=== PATIENT | female | born 1950 | race Caucasian/White ===

== ENCOUNTER 2016-04-14 13:39 | Observation (INO) | payer MEDICARE, MEDICAID ==
--- NOTE | 2016-04-14 13:49 | ER Document Report ---
ED Medical Screen (RME) - General Stated Complaint: CHEST DISCOMFORT Notes: 66-year-old female presents to ED via EMS for chest pain while eating lunch [employer]. She states she been having chest discomfort for about 45 minutes and states she would not aborted up with someone saw her to told the staff who called EMS. States she's been here multiple times for chest pain and they never figure it with round. They contacted Dr. Boyer and he sent her to the emergency room. I have greeted and performed a rapid initial assessment of this patient. A comprehensive ED assessment and evaluation of the patient, analysis of test results and completion of medical decision making process will be conducted by an additional ED providers. TRAVEL OUTSIDE OF THE [place] IN LAST 30 DAYS: No - Related Data Allergies/Adverse Reactions: Sulfa (Sulfonamide Antibiotics) Allergy (Verified 04/21/14 16:01) red food dye Allergy (Uncoded 04/21/14 16:01) Past Medical History - Past Medical History Cardiac Medical History: Reports: Hx Congestive Heart Failure, Hx Hypercholesterolemia, Hx Hypertension Pulmonary Medical History: Reports: Hx Pneumonia Neurological Medical History: Reports: Hx Seizures - NO SEIZURE IN OVER 20 YEARS Renal/ Medical History: Reports: Hx End Stage Renal Disease - kidney disease- stage 3, Hx Renal Insufficiency Malignancy Medical History: Reports: Hx Colorectal Cancer, Hx Lymphoma - Non- Hodgkin's lymphoma. GI Medical History: Reports: Hx Gastroesophageal Reflux Disease Musculoskeltal Medical History: Reports Hx Arthritis Psychiatric Medical History: Reports: Hx Bipolar Disorder, Hx Dementia, Hx Depression, Hx Schizophrenia - Paranoid schizophrenia Past Surgical History: Reports: Hx Abdominal Surgery - hernia repair, Hx Appendectomy, Hx Herniorrhaphy, Hx Hysterectomy, Hx Tonsillectomy - Immunizations Hx Diphtheria, Pertussis, Tetanus Vaccination: Yes
[2016-04-14] MEDS ORDERED: ASPIRIN 81 MG TABLET, CHEWABLE PO ONE (13:50)
[2016-04-14 14:30] LABS: ABSOLUTE EOSINOPHILS # (AUTO) 0.2 10^3/uL (0.0-0.6); ABSOLUTE LYMPHOCYTES (AUTO) 1.7 10^3/uL (0.5-4.7); ABSOLUTE MONOCYTES (AUTO) 0.5 10^3/uL (0.1-1.4); ABSOLUTE NEUT (AUTO) 3.8 10^3/uL (1.7-8.2); BASOPHILS % (AUTO) 0.5 % (0-2); EOSINOPHILS % (AUTO) 2.7 % (0-6); HEMOGLOBIN 12.1 g/dL (12.0-15.5); HGB HCT DIFFERENCE -2.7; LYMPHOCYTES % (AUTO) 27.6 % (13-45); MEAN CORPUSCULAR HEMOGLOBIN 25.4 pg (27.0-33.4); MEAN CORPUSCULAR VOLUME 82 fl (80-97); MONOCYTES % (AUTO) 7.9 % (3-13); RED BLOOD COUNT 4.76 10^6/uL (3.72-5.28); RED CELL DISTRIBUTION WIDTH 18.2 % (11.5-14.0); SEGMENTED NEUTROPHILS % (AUTO) 61.3 % (42-78); WHITE BLOOD COUNT 6.2 10^3/uL (4.0-10.5)
[2016-04-14 14:50] LABS: ALANINE AMINOTRANSFERASE 32 U/L (9-52); ALBUMIN 3.8 g/dL (3.5-5.0); ALKALINE PHOSPHATASE 131 U/L (38-126); ANION GAP 11 (5-19); ASPARTATE AMINO TRANSFERASE 19 U/L (14-36); BILIRUBIN,TOTAL 0.4 mg/dL (0.2-1.3); BLOOD UREA NITROGEN 31 mg/dL (7-20); CALCIUM 9.1 mg/dL (8.4-10.2); CARBON DIOXIDE 33 mmol/L (22-30); CHLORIDE 100 mmol/L (98-107); CREATINE KINASE 56 U/L (30-135); CREATININE RESULT 1.12 mg/dL (0.52-1.25); GLUCOSE 103 mg/dL (75-110); LIPASE 87.7 U/L (23-300); POTASSIUM 4.2 mmol/L (3.6-5.0); SODIUM 143.8 mmol/L (137-145); TOTAL PROTEIN 5.9 g/dL (6.3-8.2)
--- NOTE | 2016-04-14 17:00 | ER Document Report ---
ED Cardiac - General Chief Complaint: Chest Pain Stated Complaint: CHEST DISCOMFORT Mode of Arrival: Medic Information source: Patient TRAVEL OUTSIDE OF THE [place] IN LAST 30 DAYS: No - HPI Patient complains to provider of: Chest pain Use of: denies: Alcohol, Amphetamines, Bath salts, Caffeine, Cocaine, Decongestants Was the onset of pain: Sudden When did pain begin: 1245 Is the pain a: New problem Chest pain location: Substernal Quality of pain: Sharp - AT BEGINNING, Tightness - AND "CRAMPY" LATER Chest pain radiation location: None Severity now: None Severity at worst: Moderate Chest pain precipitating factors: Eating - LO MEIN FOR LUNCH Cardiac risk factors: Hypertension, Dyslipidemia Associated symptoms: Diaphoresis, Nausea/vomiting, Shortness of breath Exacerbated by: Denies Relieved by: Other - ASA Similar symptoms previously: Yes Recently seen / treated by doctor: No - Related Data Allergies/Adverse Reactions: Sulfa (Sulfonamide Antibiotics) Allergy (Verified 04/14/16 13:56) red food dye Allergy (Uncoded 04/14/16 13:56) Past Medical History - General Information source: Patient, Outside Facility Records - Social History Smoking Status: Unknown if Ever Smoked Chew tobacco use (# tins/day): No Frequency of alcohol use: None Drug Abuse: None Lives with: Care Home Family History: Reviewed & Not Pertinent Patient has suicidal ideation: No Patient has homicidal ideation: No - Past Medical History Cardiac Medical History: Reports: Hx Congestive Heart Failure, Hx Hypercholesterolemia, Hx Hypertension Pulmonary Medical History: Reports: Hx Pneumonia Neurological Medical History: Reports: Hx Seizures - NO SEIZURE IN OVER 20 YEARS Renal/ Medical History: Reports: Hx End Stage Renal Disease - kidney disease- stage 3, Hx Renal Insufficiency. Denies: Hx Peritoneal Dialysis Malignancy Medical History: Reports: Hx Colorectal Cancer, Hx Lymphoma - Non- Hodgkin's lymphoma. GI Medical History: Reports: Hx Gastroesophageal Reflux Disease Musculoskeltal Medical History: Reports Hx Arthritis Psychiatric Medical History: Reports: Hx Bipolar Disorder, Hx Dementia, Hx Depression, Hx Schizophrenia - Paranoid schizophrenia Past Surgical History: Reports: Hx Abdominal Surgery - hernia repair, Hx Appendectomy, Hx Herniorrhaphy, Hx Hysterectomy, Hx Tonsillectomy - Immunizations Hx Diphtheria, Pertussis, Tetanus Vaccination: Yes Hx Pneumococcal Vaccination: 12/17/13 Review of Systems - Review of Systems Constitutional: See HPI EENT: No symptoms reported Cardiovascular: See HPI Respiratory: See HPI Gastrointestinal: See HPI Genitourinary: No symptoms reported Female Genitourinary: Post menopausal Musculoskeletal: No symptoms reported Skin: No symptoms reported Neurological/Psychological: No symptoms reported Physical Exam - Vital signs Vitals: Temp Pulse Resp BP Pulse Ox 97.3 F 57 L 16 119/57 L 97 04/14/16 13:58 04/14/16 13:58 04/14/16 13:58 04/14/16 13:58 04/14/16 13:58 Interpretation: Bradycardic - General General appearance: Appears well, Alert In distress: None - HEENT Head: Normocephalic Eyes: Normal Conjunctiva: Normal Ears: Normal Nasal: Normal Mouth/Lips: Normal Mucous membranes: Normal Pharynx: Normal Neck: Normal - Respiratory Respiratory status: No respiratory distress Breath sounds: Normal - Cardiovascular Rhythm: Regular Heart sounds: Normal auscultation Murmur: No - Abdominal Inspection: Obese Bowel sounds: Normal - Extremities General upper extremity: Normal inspection General lower extremity: Edema - 2+, BILAT. (PATIENT SAYS THEY LOOK GOOD TODAY) . No: Normal inspection Foot: Edema - 1+, BILAT. - Neurological Neuro grossly intact: Yes Cognition: Normal Orientation: AAOx4 - Psychological Associated symptoms: Normal affect, Normal mood - Skin Skin Temperature: Warm Skin Moisture: Dry Skin Color: Normal Skin Turgor: Elastic Skin irregularity: Erythema Location of irregularity: Other - LEGS & FEET Course - Vital Signs Vital signs: Temp Pulse Resp BP Pulse Ox 97.3 F 57 L 16 119/57 L 97 04/14/16 13:58 04/14/16 13:58 04/14/16 13:58 04/14/16 13:58 04/14/16 13:58 - Laboratory Result Diagrams: 04/14/16 14:10 04/14/16 14:10 Laboratory results interpreted by me: 04/14/16 04/14/16 14:10 14:10 MCH 25.4 L MCHC 31.0 L RDW 18.2 H Carbon Dioxide 33 H BUN 31 H Est GFR ( Amer) 59 L Est GFR (Non-Af Amer) 48 L Alkaline Phosphatase 131 H Total Protein 5.9 L - EKG Interpretation by Al EKG shows normal: Sinus rhythm, Climax, Intervals, QRS Complexes, ST-T Waves Rate: Normal Rhythm: Other - ECTOPIC ATRIAL PACEMAKER - Consults DR. MOCK Time consulted: 17:05 Reason for consultation: 04/14/16 17:09 CONSIDER FOR ADMISSION Consulted provider: will come to ER Discharge - Discharge Clinical Impression: Chest pain Qualifiers: Chest pain type: unspecified Qualified Code(s): R07.9 - Chest pain, unspecified Condition: Good Disposition: ADMITTED OBSERVATION Admitting Provider: Hospitalist Unit Admitted: Telemetry
--- NOTE | 2016-04-14 18:08 | PDOC H&P ---
History of Present Illness Admission Date/PCP: 04/14/16 17:25 BRITTNEY STANTON MD Patient complains of: Chest pain History of Present Illness: LIBAN WYMAN is a 66 year old female, with history of Parkinson's disease, lymphoma, pleural effusion, constipation developed chest pain earlier today after eating lo-mein. Pain is sharp in nature on the precordium without any radiation. It is associated with some lightheadedness but no syncope. Denies any shortness of breath, diaphoresis, nausea or vomiting, palpitation, or syncope. Symptoms lasted for about 45 minutes. It resolved by itself. She did not take any medication for it. She told the staff in the facility and apparently they sent the patient to the hospital for evaluation and was referred for observation. Patient denies any chest pain at the moment. Past Medical History Past Medical History: Medication reconciliation pending verification from the patient's pharmacist. Cardiac Medical History: Reports: Congestive Heart Failure, Hyperlipidema, Hypertension, Other - Recurrent chest pain Pulmonary Medical History: Reports: Pneumonia Neurological Medical History: Reports: Seizures - NO SEIZURE IN OVER 20 YEARS Renal/ Medical History: Reports: End Stage Renal Disease - kidney disease- stage 3 Malignancy Medical History: Reports: Colorectal Cancer, Lymphoma - Non-Hodgkin' s lymphoma. GI Medical History: Reports: Gastroesophageal Reflux Disease Musculoskeltal Medical History: Reports: Arthritis Psychiatric Medical History: Reports: Bipolar Disorder, Dementia, Depression, Other - Paranoid schizophrenia Hematology: Reports: Anemia, Other - Thrombocytopenia Past Surgical History Past Surgical History: Reports: Appendectomy, Herniorrhaphy, Hysterectomy, Tonsillectomy, Other - Port-A-Cath placement Social History Information Source: Patient Lives with: [facility] Smoking Status: Never Smoker Frequency of Alcohol Use: Rare Hx Recreational Drug Use: No Drugs: None Hx Prescription Drug Abuse: No Family History Family History: Hypertension, Malignancy - Unknown type Parental Family History Reviewed: Yes Children Family History Reviewed: Yes Sibling(s) Family History Reviewed.: Yes Medication/Allergy Home Medications: Rosuvastatin Calcium [Crestor 10 mg Tablet] 10 mg PO QHS 10/29/12 Cyanocobalamin (Vitamin B-12) [Vitamin B-12] 1,000 mcg PO DAILY 11/14/13 Omeprazole [Prilosec] 20 mg PO Q12 12/31/13 Allopurinol [Zyloprim 100 mg Tablet] 200 mg PO DAILY #0 tablet 01/09/14 Donepezil HCl [Aricept 5 mg Tablet] 10 mg PO HSP 03/24/14 Acetaminophen [Tylenol Extra Strength] 1,000 mg PO Q8H PRN 04/21/14 Ipratropium/Albuterol Sulfate [Duoneb 3 ml Ampul] 3 ml NEB RTQ4 PRN 04/21/14 Paroxetine HCl [Paxil 20 mg Tablet] 40 mg PO DAILY 04/21/14 Lactulose 20 gm PO Q12 02/05/15 Aspirin [Aspirin 325 mg Tablet] 325 mg PO DAILY #0 tablet 02/08/15 Azilect 1 mg Tablet 1 mg PO .DAILY 02/08/15 Docusate Sodium [Colace 100 mg Capsule] 100 mg PO BID #0 capsule 02/08/15 Cyclosporine 0.05% Oph Emulsio [Restasis 0.05% Oph Emulsion Pf 0.4 ml] 1 drop XX BID 08/21/15 Furosemide [Lasix 20 mg Tablet] 40 mg PO DAILY tablet 08/22/15 Isosorbide Mononitrate [Imdur 30 mg Tablet.er] 30 mg PO DAILY tab.er.24h Metoprolol Tartrate [Lopressor 25 mg Tablet] 25 mg PO Q12 tablet 08/22/15 Morphine Sulfate [Ms-Contin Sr 15 mg Tablet] 15 mg PO Q12A #30 tablet.sa Potassium Chloride 0.5 tab PO DAILY #0 08/22/15 Allergies/Adverse Reactions: Sulfa (Sulfonamide Antibiotics) Allergy (Verified 04/14/16 13:56) red food dye Allergy (Uncoded 04/14/16 13:56) Review of Systems Constitutional: ABSENT: chills, fever(s), headache(s), night sweats, weakness, weight gain, weight loss Eyes: ABSENT: visual disturbances Ears: ABSENT: hearing changes Nose, Mouth, and Throat: ABSENT: mouth pain, sore throat Cardiovascular: PRESENT: chest pain, edema - Chronic both lower extremities. ABSENT: dyspnea on exertion, orthropnea, palpitations Respiratory: ABSENT: cough, dyspnea, hemoptysis, sputum Gastrointestinal: PRESENT: bloating - Occasional, constipation. ABSENT: abdominal pain, diarrhea, hematemesis, hematochezia, melena, nausea, vomiting Genitourinary: ABSENT: dysuria, hematuria Musculoskeletal: ABSENT: joint swelling Integumentary: PRESENT: pruritus - On the dorsum of both feet, rash - On the dorsum of both feet. ABSENT: wounds Neurological: ABSENT: abnormal gait, abnormal speech, confusion, dizziness, focal weakness, syncope Psychiatric: ABSENT: anxiety, depression, homidical ideation, suicidal ideation Endocrine: ABSENT: cold intolerance, heat intolerance, polydipsia, polyphagia, polyuria Hematologic/Lymphatic: ABSENT: easy bleeding, easy bruising Physical Exam Vital Signs: Temp Pulse Resp BP Pulse Ox 97.3 F 57 L 16 119/57 L 98 04/14/16 13:58 04/14/16 13:58 04/14/16 17:00 04/14/16 13:58 04/14/16 17:00 General appearance: PRESENT: no acute distress, cooperative, morbidly obese Head exam: PRESENT: atraumatic, normocephalic Eye exam: PRESENT: conjunctiva pink, EOMI, PERRLA. ABSENT: scleral icterus Ear exam: PRESENT: normal external ear exam. ABSENT: drainage Mouth exam: PRESENT: moist, neck supple, tongue midline Throat exam: ABSENT: post pharyngeal erythema, tonsillar erythema, tonsillar exudate Neck exam: ABSENT: carotid bruit, JVD, lymphadenopathy, thyromegaly Respiratory exam: PRESENT: clear to auscultation andre, unlabored. ABSENT: rales , rhonchi, wheezes Cardiovascular exam: PRESENT: RRR, +S1, +S2. ABSENT: diastolic murmur, gallop, rubs, systolic murmur Pulses: PRESENT: normal dorsalis pedis pul Vascular exam: PRESENT: normal capillary refill GI/Abdominal exam: PRESENT: normal bowel sounds, soft, other - Obese. ABSENT: distended, guarding, mass, organolmegaly, rebound, tenderness Rectal exam: PRESENT: deferred Extremities exam: PRESENT: full ROM, +2 edema - Chronic lymphedema with hyperpigmentation of the skin bilateral and symmetrical. ABSENT: calf tenderness, clubbing Neurological exam: PRESENT: alert, awake, oriented to situation Psychiatric exam: PRESENT: appropriate affect, normal mood. ABSENT: homicidal ideation, suicidal ideation Skin exam: PRESENT: dry, warm, other - Noted some papular rash on the dorsum of both feet. ABSENT: cyanosis, rash Results Impressions: Chest X-Ray 04/14/16 13:50 IMPRESSION: No acute findings Assessment & Plan - Diagnosis (1) Chest pain Qualifiers: Chest pain type: unspecified Qualified Code(s): R07.9 - Chest pain, unspecified Is this a current diagnosis for this admission?: Yes (2) Folliculitis Is this a current diagnosis for this admission?: Yes (3) Paranoid schizophrenia Is this a current diagnosis for this admission?: Yes (4) Anemia of chronic disease Is this a current diagnosis for this admission?: Yes (5) Parkinsons disease Is this a current diagnosis for this admission?: Yes (6) Chronic constipation Is this a current diagnosis for this admission?: Yes (7) Morbid obesity Qualifiers: Obesity type: unspecified obesity type Qualified Code(s): E66.01 - Morbid (severe) obesity due to excess calories Is this a current diagnosis for this admission?: Yes (8) History of lymphoma Is this a current diagnosis for this admission?: Yes - Time Time Spent: 50 to 70 Minutes Anticipated discharge: SNF Within: within 24 hours - Plan Summary Plan Summary: The patient will be placed on observation. The patient will be placed on antiplatelet therapy. We will give supplemental oxygen and DVT prophylaxis. In the meantime we will serially obtain cardiac enzymes 3 and if negative patient can be discharged back to the facility. Her chest pain is atypical. In terms of the folliculitis. I will try the patient on antifungal cream seemed to help.
[2016-04-14] MEDS ORDERED: ONDANSETRON HCL INJ/PF 4 MG/2 ML SDV IV PRN (18:12)
--- NOTE | 2016-04-14 19:59 | EKG REPORT ---
SEVERITY:- BORDERLINE ECG - ECTOPIC ATRIAL RHYTHM : Confirmed by: Maya Dyson MD 14-Apr-2016 19:58:42
[2016-04-14] MEDS ORDERED: ENOXAPARIN SODIUM INJ 40 MG/0.4 ML DISP.SYRIN SUBCUT ONE (20:00)
[2016-04-14] MEDS: METOPROLOL TARTRATE 25 MG TABLET PO SCH (22:01)
[2016-04-14] MEDS: CLOTRIMAZOLE/BETAMETHASONE DIP CREAM 15 GM TOP SCH (22:01)
[2016-04-14] MEDS: NORMAL SALINE 1000 ML 1,000 ML IV PRN (22:02)
[2016-04-14] MEDS: ACETAMINOPHEN 325 MG TABLET PO PRN (22:03)
[2016-04-15] MEDS ORDERED: LANSOPRAZOLE 30 MG TAB.RAP.DR PO SCH (06:00)
[2016-04-15] MEDS ORDERED: ENOXAPARIN SODIUM INJ 40 MG/0.4 ML DISP.SYRIN SUBCUT SCH (08:00)
[2016-04-15] MEDS: ACETAMINOPHEN 325 MG TABLET PO PRN (08:15)
[2016-04-15] MEDS: NORMAL SALINE 1000 ML 1,000 ML IV PRN (08:16)
[2016-04-15] MEDS ORDERED: LACTULOSE SYRUP 20 GM/30 ML UDCUP PO SCH (10:00)
[2016-04-15] MEDS ORDERED: ISOSORBIDE MONONITRATE 60 MG TAB.ER.24H PO SCH (10:00)
[2016-04-15] MEDS ORDERED: DONEPEZIL HCL 5 MG TABLET PO SCH (10:00)
[2016-04-15] MEDS ORDERED: DOCUSATE SODIUM 100 MG CAPSULE PO SCH (10:00)
[2016-04-15] MEDS ORDERED: ASPIRIN 81 MG TABLET, CHEWABLE PO SCH (10:00)
[2016-04-15] MEDS: METOPROLOL TARTRATE 25 MG TABLET PO SCH (10:34)
[2016-04-15] MEDS: CLOTRIMAZOLE/BETAMETHASONE DIP CREAM 15 GM TOP SCH (10:35)
--- NOTE | 2016-04-15 11:04 | PDOC TRANSFER SUMMARY ---
General - Admit/Disc Date/PCP Admission Date/Primary Care Provider: 04/14/16 18:12 BRITTNEY STANTON MD Discharge Date: 04/15/16 - Discharge Diagnosis (1) Chest pain Is this a current diagnosis for this admission?: Yes (2) Folliculitis Is this a current diagnosis for this admission?: Yes (3) Paranoid schizophrenia Is this a current diagnosis for this admission?: Yes (4) Anemia of chronic disease Is this a current diagnosis for this admission?: Yes (5) Parkinsons disease Is this a current diagnosis for this admission?: Yes (6) Chronic constipation Is this a current diagnosis for this admission?: Yes (7) Morbid obesity Is this a current diagnosis for this admission?: Yes (8) History of lymphoma Is this a current diagnosis for this admission?: Yes - Additional Information Resuscitation Status: Full Code Discharge Diet: Cardiac - low fat low salt Discharge Activity: Activity As Tolerated, Balance Activity w/Rest Home Medications: Acetaminophen [Tylenol Extra Strength 500 mg Tablet] 1,000 mg PO Q8HP PRN Allopurinol [Zyloprim 100 mg Tablet] 200 mg PO DAILY 04/14/16 Aspirin [Aspirin 325 mg Tablet] 325 mg PO DAILY 04/14/16 Cyanocobalamin (Vitamin B-12) [Vitamin B-12 1000 mcg Tablet] 1,000 mcg PO DAILY 04/14/16 Cyclosporine [Restasis Droperette] 1 drop OU BID 04/14/16 Docusate Sodium [Colace 100 mg Capsule] 100 mg PO BID 04/14/16 Donepezil HCl [Aricept] 10 mg PO QHS 04/14/16 Ergocalciferol (Vitamin D2) [Drisdol 50,000 unit (1.25MG) Capsule] 50,000 unit PO TH@1000 04/14/16 Furosemide [Lasix 40 mg Tablet] 40 mg PO BID 04/14/16 Ipratropium/Albuterol Sulfate [Duoneb 3 ml Ampul] 3 ml IH Q4HP PRN 04/14/16 Lactulose [Cephulac Syrup 20 gm/30 ml Udcup] 20 gm PO BID 04/14/16 Mag Hydrox/Al Hydrox/Simeth [Maalox Plus Susp 30 Udcup] 20 ml PO Q4HP PRN Magnesium Oxide [Mag-Ox 400 mg Tablet] 400 mg PO BID 04/14/16 Menthol [Biofreeze] 1 applic TOP Q6HP PRN 04/14/16 Metoprolol Tartrate [Lopressor 25 mg Tablet] 12.5 mg PO Q12 04/14/16 Multivitamin [Multivitamins] 1 each PO DAILY 04/14/16 Omeprazole 20 mg PO BID 04/14/16 Paroxetine HCl [Paxil] 40 mg PO DAILY 04/14/16 Potassium Chloride [Klor-Con 10 Meq Tablet.sa] 20 meq PO DAILY 04/14/16 Quetiapine Fumarate [Seroquel 25 mg Tablet] 25 mg PO QHS 04/14/16 Rasagiline Mesylate [Azilect] 1 mg PO DAILY 04/14/16 Rosuvastatin Calcium [Crestor 20 mg Tablet] 20 mg PO QHS 04/14/16 Clotrimazole/Betamethasone Dip [Lotrisone Cream 15 gm] 1 applic TOP Q12 tube Morphine Sulfate [Ms-Contin Sr 15 mg Tablet] 15 mg PO Q8 #30 tablet.sa 04/15/16 Morphine Sulfate [Roxanol] 10 mg SL Q4HP PRN #30 ml 04/15/16 Additional Information: Stress test as outpatient in 1 week. Lotrisone cream to the rash on the feet for 2 weeks. History of Present Illness Admission Date/PCP: 04/14/16 18:12 BRITTNEY STANTON MD Patient complains of: Chest pain History of Present Illness: LIBAN WYMAN is a 66 year old female, with history of Parkinson's disease, lymphoma, pleural effusion, constipation developed chest pain earlier today after eating lo-mein. Pain is sharp in nature on the precordium without any radiation. It is associated with some lightheadedness but no syncope. Denies any shortness of breath, diaphoresis, nausea or vomiting, palpitation, or syncope. Symptoms lasted for about 45 minutes. It resolved by itself. She did not take any medication for it. She told the staff in the facility and apparently they sent the patient to the hospital for evaluation and was referred for observation. Patient denies any chest pain at the moment. Hospital Course Hospital Course: The patient was admitted to the medical floor with telemetry. The patient was continued on aspirin and nitroglycerin and oxygen were given. The patient has been chest pain-free all grew out course. Serial cardiac enzymes were obtained and were negative. The patient does not want to stay in the hospital but agreed to have a stress test due to recurrent symptoms. She wants it done on an outpatient basis. Course was noted with rash on the dorsum of the feet with itchiness where the patient was given Lotrisone and her symptoms improved. The rest of the hospital stay is unremarkable. Physical Exam Vital Signs: Temp Pulse Resp BP Pulse Ox 97.9 F 50 L 16 115/41 L 99 04/15/16 07:31 04/15/16 07:31 04/15/16 07:31 04/15/16 07:31 04/15/16 07:31 Intake & Output 04/14/16 04/15/16 04/16/16 06:59 06:59 06:59 Weight 99.51 kg General appearance: PRESENT: no acute distress, cooperative, morbidly obese Head exam: PRESENT: normocephalic Eye exam: PRESENT: EOMI Mouth exam: PRESENT: moist, neck supple Neck exam: ABSENT: JVD Respiratory exam: PRESENT: clear to auscultation andre. ABSENT: rhonchi, wheezes Cardiovascular exam: PRESENT: RRR. ABSENT: gallop GI/Abdominal exam: PRESENT: hyperactive bowel sounds, soft. ABSENT: distended, tenderness Extremities exam: PRESENT: +2 edema - Chronic, papular rash noted on the dorsum of the feet bilateral Neurological exam: PRESENT: alert, awake, oriented to situation Skin exam: PRESENT: dry, warm. ABSENT: cyanosis Results Laboratory Results: 04/14/16 04/14/16 04/15/16 20:35 20:35 00:55 Creatine Kinase 55 44 Troponin I < 0.012 04/15/16 04/15/16 04/15/16 00:55 04:42 04:42 Creatine Kinase 47 Troponin I < 0.012 < 0.012 Impressions: Chest X-Ray 04/14/16 13:50 IMPRESSION: No acute findings Transfer Plan - Disposition Transfer Plan: Transfer back to the halfway for long-term care - Time Spent with Patient Time spent with patient: Less than 30 Minutes Qualifiers PATEINT BEING DISCHARGED WITH ANY OF THE FOLLOWING DIAGNOSIS?: No Plan Discharge Plan: Follow-up with primary care physician in one week. Time Spent: Less than 30 Minutes
[2016-04-15 12:29] VITALS: BP 116/43
== END 2016-04-15 13:00 ==
LOC: ER 13:39 → EH 17:25 → UNDOADMOB 17:25 → EH 18:12 → 5 21:19
PROVIDERS: ADMIT Family Medicine; ATTEND Family Medicine
DX: R07.9 Chest pain, unspecified (principal); L73.9 Follicular disorder, unspecified; F20.0 Paranoid schizophrenia; G20 Parkinson's disease; K59.09 Other constipation; E66.01 Morbid (severe) obesity due to excess calories; Z68.41 Body mass index [BMI] 40.0-44.9, adult; Z85.72 Personal history of non-Hodgkin lymphomas; I50.9 Heart failure, unspecified; E78.5 Hyperlipidemia, unspecified; R56.9 Unspecified convulsions; I12.9 Hypertensive chronic kidney disease with stage 1 through stage 4 chronic kidney disease, or unspecified chronic kidney disease; N18.3 Chronic kidney disease, stage 3 (moderate); K21.9 Gastro-esophageal reflux disease without esophagitis; M19.90 Unspecified osteoarthritis, unspecified site; D69.6 Thrombocytopenia, unspecified
CPT/HCPCS: 93005; 99285; 36415 ×2; 82553; 82550 ×2; 83690; 85025; 80053; 84484 ×2; 71020; 93010; G0378 ×3; A9270 ×11; J1650 ×2; J7030 ×2

== ENCOUNTER 2016-05-16 09:35 | Emergency (ER) | payer MEDICARE ==
[2016-05-16] MEDS ORDERED: HYDROMORPHONE HCL INJ/PF 2 MG/ML AMPULE IM ONE (10:59)
[2016-05-16] MEDS ORDERED: HYDROMORPHONE HCL INJ/PF 2 MG/ML AMPULE IV ONE ×2 (11:11→13:55)
[2016-05-16 11:38] LABS: APPEARANCE,URINE CLEAR; BILIRUBIN,URINE NEGATIVE (NEGATIVE); GLUCOSE, URINE NEGATIVE (NEGATIVE); KETONES,URINE NEGATIVE (NEGATIVE); LEUKOCYTE ESTERASE,URINE NEGATIVE (NEGATIVE); NITRITE,URINE NEGATIVE (NEGATIVE); PROTEIN,URINE NEGATIVE (NEGATIVE); URINE SPECIFIC GRAVITY 1.009; UROBILINOGEN,URINE NEGATIVE mg/dL (<2.0)
--- NOTE | 2016-05-16 12:06 | ER Document Report ---
ED General - General Chief Complaint: Back Pain Stated Complaint: BACK PAIN Mode of Arrival: Medic Information source: Patient, Relative Notes: 58-year-old female history of Hodgkin's lymphoma DO NOT RESUSCITATE with chronic back pain presents with worsening back pain that started last night. Patient denies any neurological deficits. Denies any urinary complaints. Patient takes morphine for her pain TRAVEL OUTSIDE OF THE [place] IN LAST 30 DAYS: No - HPI Onset: Yesterday Onset/Duration: Sudden Quality of pain: Achy Severity: Moderate Pain Level: 2 Associated symptoms: Other Exacerbated by: Movement Relieved by: Denies Similar symptoms previously: Yes Recently seen / treated by doctor: Yes - Related Data Allergies/Adverse Reactions: Sulfa (Sulfonamide Antibiotics) Allergy (Verified 04/14/16 13:56) red food dye Allergy (Uncoded 04/14/16 13:56) Past Medical History - Social History Smoking Status: Never Smoker Cigarette use (# per day): No Chew tobacco use (# tins/day): No Smoking Education Provided: No Family History: Hypertension, Malignancy - Unknown type - Past Medical History Cardiac Medical History: Reports: Hx Congestive Heart Failure, Hx Hypercholesterolemia, Hx Hypertension Pulmonary Medical History: Reports: Hx Pneumonia Neurological Medical History: Reports: Hx Seizures - NO SEIZURE IN OVER 20 YEARS Renal/ Medical History: Reports: Hx End Stage Renal Disease - kidney disease- stage 3, Hx Renal Insufficiency. Denies: Hx Peritoneal Dialysis Malignancy Medical History: Reports: Hx Colorectal Cancer, Hx Lymphoma - Non- Hodgkin's lymphoma. GI Medical History: Reports: Hx Gastroesophageal Reflux Disease Musculoskeltal Medical History: Reports Hx Arthritis Psychiatric Medical History: Reports: Hx Bipolar Disorder, Hx Dementia, Hx Depression, Hx Schizophrenia - Paranoid schizophrenia Past Surgical History: Reports: Hx Abdominal Surgery - hernia repair, Hx Appendectomy, Hx Herniorrhaphy, Hx Hysterectomy, Hx Tonsillectomy, Other - Port- A-Cath placement - Immunizations Hx Diphtheria, Pertussis, Tetanus Vaccination: Yes Hx Pneumococcal Vaccination: 12/17/13 Review of Systems - Review of Systems Notes: REVIEW OF SYSTEMS: CONSTITUTIONAL : Denies fever, chills, or sweats. Denies recent illness. EENT: Denies eye, ear, throat, or mouth pain or symptoms. Denies nasal or sinus congestion or discharge. Denies throat, tongue, or mouth swelling or difficulty swallowing. CARDIOVASCULAR: Denies chest pain. Denies palpitations or racing or irregular heart beat. Denies ankle edema. RESPIRATORY: Denies cough, cold, or chest congestion. Denies shortness of breath, difficulty breathing, or wheezing. GASTROINTESTINAL: Denies abdominal pain or distention. Denies nausea, vomiting , or diarrhea. Denies blood in vomitus, stools, or per rectum. Denies black, tarry stools. Denies constipation. GENITOURINARY: Denies difficulty urinating, painful urination, burning, frequency, blood in urine, or discharge. FEMALE GENITOURINARY: Denies vaginal bleeding, heavy or abnormal periods, irregular periods. Denies vaginal discharge or odor. MUSCULOSKELETAL: Admits low back pain SKIN: Chronic lower extremity lymphedema with erythema HEMATOLOGIC : Denies easy bruising or bleeding. LYMPHATIC: Denies swollen, enlarged glands. NEUROLOGICAL: Denies confusion or altered mental status. Denies passing out or loss of consciousness. Denies dizziness or lightheadedness. Denies headache. Denies weakness or paralysis or loss of use of either side. Denies problems with gait or speech. Denies sensory loss, numbness, or tingling. Denies seizures. PSYCHIATRIC: Denies anxiety or stress. Denies depression, suicidal ideation, or homicidal ideation. ALL OTHER SYSTEMS REVIEWED AND NEGATIVE. Dictation was performed using [employer] voice recognition software PHYSICAL EXAMINATION: GENERAL: Chronically ill-appearing female no acute distress HEAD: Atraumatic, normocephalic. EYES: Pupils equal round and reactive to light, extraocular movements intact, conjunctiva are normal. ENT: Nares patent, oropharynx clear without exudates. Moist mucous membranes. NECK: Normal range of motion, supple without lymphadenopathy LUNGS: Breath sounds clear to auscultation bilaterally and equal. No wheezes rales or rhonchi. HEART: Regular rate and rhythm without murmurs ABDOMEN: Soft, nontender, nondistended abdomen. No guarding, no rebound. No masses appreciated. Female : deferred Musculoskeletal: Tenderness on palpation of the lumbar spine no step-off or deformity NEUROLOGICAL: Cranial nerves grossly intact. Normal speech, normal gait. Normal sensory, motor exams PSYCH: Normal mood, normal affect. SKIN: Bilateral lower extremity erythema Physical Exam - Vital signs Vitals: Temp Pulse BP Pulse Ox 97.7 F 50 L 127/54 H 98 05/16/16 09:41 05/16/16 09:41 05/16/16 09:41 05/16/16 09:41 Course - Re-evaluation Re-evalutation: 05/16/16 12:30 Urinalysis noted no acute abnormality, CT will be performed of the lumbar spine to rule out any lesions but given that this is probably acute on chronic pain patient will be controlled with pain medication and discharged back to care facility 05/16/16 12:55 CT lumbarsignificant abnormality, chronic changes are noted. Patient will be discharged home with pain control is otherwise stable After performing a Medical Screening Examination, I estimate there is LOW risk for EXPANDING OR RUPTURED ABDOMINAL AORTIC ANEURYSM, CAUDA EQUINA SYNDROME, EPIDURAL MASS LESION, or HERNIATED DISK CAUSING SEVERE SPINAL STENOSIS, thus I consider the discharge disposition reasonable. The patient and I have discussed the diagnosis and risks, and we agree with discharging home and close follow-up. We also discussed returning to the Emergency Department immediately if new or worsening symptoms occur with the understanding that symptoms and presentations can change. We have discussed the symptoms which are most concerning (e.g., saddle anesthesia, urinary or bowel incontinence or retention , changing or worsening pain) that necessitate immediate return. - Vital Signs Vital signs: Temp Pulse Resp BP Pulse Ox 97.7 F 50 L 127/54 H 98 05/16/16 09:41 05/16/16 09:41 05/16/16 09:41 05/16/16 09:41 - Diagnostic Test Radiology reviewed: Image reviewed, Reports reviewed Discharge - Discharge Clinical Impression: Tenderness of lumbar region Condition: Stable Disposition: HOME, SELF-CARE Instructions: Low Back Pain ([facility]) Prescriptions: Hydromorphone HCl [Dilaudid 2 mg Tablet] 2 mg PO Q4HP PRN #20 tablet PRN Reason: Referrals: BRITTNEY STANTON MD [Primary Care Provider] - Follow up in 3-5 days
[2016-05-16 15:24] VITALS: BP 131/78
== END 2016-05-16 15:00 | disposition home or self-care (01) ==
LOC: ER 09:35
DX: G89.29 Other chronic pain (principal); M54.5 Low back pain; E78.00 Pure hypercholesterolemia, unspecified; I13.0 Hypertensive heart and chronic kidney disease with heart failure and stage 1 through stage 4 chronic kidney disease, or unspecified chronic kidney disease; N18.3 Chronic kidney disease, stage 3 (moderate); Z91.02 Food additives allergy status; Z88.2 Allergy status to sulfonamides; Z90.710 Acquired absence of both cervix and uterus; Z85.038 Personal history of other malignant neoplasm of large intestine; Z85.72 Personal history of non-Hodgkin lymphomas
CPT/HCPCS: 96376; 99284; 96374; 81001; 72131; J1170

== ENCOUNTER → 2016-07-06 | Outpatient (CLI) | payer MEDICARE, MEDICAID ==
--- NOTE | 2016-07-08 14:52 | XCELERA REPORT ---
[address] [address] Lower Extremity Arterial Evaluation Name: LIBAN YWMAN Age: 66 yrs Gender: Female : 1950 Patient Status: Outpatient Patient Location: Study Date: 07/06/2016 01:12 PM Procedure: A color flow and duplex scan of the lower extremity arteries was performed bilaterally with velocity and waveform anaylsis. Ankle brachial indicies performed. Reason For Study: ULCER Ordering Physician: LINDA ASH Performed By: Eleazar Akins Measurements and Calculations Right Left STOCK SHIPPER PSV 268.0 265.3 cm/sec Prox PFA PSV -138.3 -135.5 cm/sec Mid SFA PSV -157.1 -135.9 cm/sec Dist Pop A PSV 106.4 132.7 cm/sec Dist MAIRA PSV 164.1 114.4 cm/sec Dist PARTS COUNTER ASSOCIATE PSV 125.0 -103.1 cm/sec Victor Manuel Pedis PSV 108.7 -54.8 cm/sec Right Side Arterial Evaluation Normal velocity and triphasic waveforms noted in the Common Femoral artery. Biphasic from the Femoral and Deep Femoral to the infrageniculate vessels. With moderate spectral broadening, and well preserved velocity. 20-49 % stenosis at the Femoral artery. Ankle Brachial index is 1.20. Left Side Arterial Evaluation Normal velocity and triphasic waveforms noted in the Common Femoral and Deep Femoral arteries. Biphasic from the Femoral to the infrageniculate vessels. With moderate spectral broadening, and well preserved velocity. 20-49 % stenosis at the Femoral artery. Ankle Brachial index is 1.20. Interpretation Summary Moderate hemodynamically significant lesions in the bilateral lower extremities, on duplex imaging, at rest. : LINDA ASH [place]
--- NOTE | 2016-07-10 08:35 | XCELERA REPORT ---
[address] [address] Lower Extremity Venous Evaluation Name: LIBAN WYMAN Age: 66 yrs Gender: Female : 1950 Patient Status: Outpatient Patient Location: Study Date: 07/06/2016 01:30 PM Procedure: A bilateral duplex scan of the lower extremity veins was performed. The evaluation included responses to compression and other maneuvers with patient in the supine and standing positions to assess venous insufficiency. Reason For Study: ULCER Ordering Physician: LINDA ASH Performed By: Eleazar Akins Right Sided Venous Evaluation Deep venous system evaluation shows patent veins with significant reflux identified. 4.0 second reflux in the CFV, Sapheno Femoral junction: 4.1 second reflux. 10 mm. Greater Saphenous vein, Proximal thigh: reflux: none Greater Saphenous vein, mid thigh: reflux: none Greater Saphenous vein, Distal thigh: reflux: none Greater Saphenous vein, Proximal below knee: reflux: none Greater Saphenous vein, Mid below knee: reflux: none. Greater Saphenous vein, Distal below knee: reflux: none No significant Perforators identified. Left Sided Venous Evaluation Deep venous system evaluation shows patent veins with significant reflux identified. 3 second reflux in the CFV. Sapheno Femoral junction: 2.47 second reflux. 8 mm. Greater Saphenous vein, Proximal thigh: reflux: 2.9 seconds, 6 mm diameter. Greater Saphenous vein, mid thigh: reflux: 2.2 seconds, 6 mm diameter. Greater Saphenous vein, Distal thigh: reflux: 3.9 seconds.6 mm. Greater Saphenous vein, Proximal below knee: reflux: none Greater Saphenous vein, Mid below knee: reflux: none. Greater Saphenous vein, Distal below knee: reflux: none. No significant Perforators identified. Interpretation Summary No duplex evidence of DVT or obstruction in the bilateral lower extremities. Reflux as noted. There may be an opportunity for intervention on the left. : LINDA ASH > Dk [place]
== END ==
LOC: SP 13:12
PROVIDERS: ATTEND Nurse Practitioner Family
DX: L97.212 Non-pressure chronic ulcer of right calf with fat layer exposed (principal)
CPT/HCPCS: 93925; 93970

== ENCOUNTER 2016-09-05 11:11 | Emergency (ER) | payer MEDICARE, MEDICAID ==
[2016-09-05 12:04] LABS: APPEARANCE,URINE CLEAR; BILIRUBIN,URINE NEGATIVE (NEGATIVE); GLUCOSE, URINE NEGATIVE (NEGATIVE); KETONES,URINE NEGATIVE (NEGATIVE); LEUKOCYTE ESTERASE,URINE NEGATIVE (NEGATIVE); NITRITE,URINE NEGATIVE (NEGATIVE); PROTEIN,URINE NEGATIVE (NEGATIVE); URINE SPECIFIC GRAVITY 1.006; UROBILINOGEN,URINE NEGATIVE mg/dL (<2.0)
--- NOTE | 2016-09-05 12:07 | ER Document Report ---
ED General - General Chief Complaint: General Weakness Stated Complaint: WEAKNESS Time Seen by Provider: 09/05/16 11:47 Information source: Patient, Relative Notes: Patient is a 66-year-old female with a very complicated past medical history who lives at a [facility] care facility and states for the last 2 days she has just felt "tired". Patient is a DNR/DNI. Patient denies any headache, neck pain, chest pain, abdominal pain, or weakness or numbness above baseline. Patient has some chronic lymphedema. Patient supposedly did have a fall yesterday but denies hitting her head. The power of sales and service engineer is at bedside and is very familiar and comfortable with the patient. TRAVEL OUTSIDE OF THE [place] IN LAST 30 DAYS: No - HPI Onset: Other - See above Onset/Duration: Sudden Quality of pain: Achy Severity: Mild Pain Level: 0 Associated symptoms: Other - See above Exacerbated by: Denies Relieved by: Denies Similar symptoms previously: Yes Recently seen / treated by doctor: Yes - Related Data Allergies/Adverse Reactions: Sulfa (Sulfonamide Antibiotics) Allergy (Verified 04/14/16 13:56) red food dye Allergy (Uncoded 04/14/16 13:56) Past Medical History - General Information source: Patient - Social History Smoking Status: Never Smoker Cigarette use (# per day): No Chew tobacco use (# tins/day): No Smoking Education Provided: No Frequency of alcohol use: None Drug Abuse: None Family History: Hypertension, Malignancy - Unknown type - Past Medical History Cardiac Medical History: Reports: Hx Congestive Heart Failure, Hx Hypercholesterolemia, Hx Hypertension Pulmonary Medical History: Reports: Hx Pneumonia Neurological Medical History: Reports: Hx Seizures - NO SEIZURE IN OVER 20 YEARS Renal/ Medical History: Reports: Hx End Stage Renal Disease - kidney disease- stage 3, Hx Renal Insufficiency. Denies: Hx Peritoneal Dialysis Malignancy Medical History: Reports: Hx Colorectal Cancer, Hx Lymphoma - Non- Hodgkin's lymphoma. GI Medical History: Reports: Hx Gastroesophageal Reflux Disease Musculoskeltal Medical History: Reports Hx Arthritis Psychiatric Medical History: Reports: Hx Bipolar Disorder, Hx Dementia, Hx Depression, Hx Schizophrenia - Paranoid schizophrenia Past Surgical History: Reports: Hx Abdominal Surgery - hernia repair, Hx Appendectomy, Hx Herniorrhaphy, Hx Hysterectomy, Hx Tonsillectomy, Other - Port- A-Cath placement - Immunizations Hx Diphtheria, Pertussis, Tetanus Vaccination: Yes Hx Pneumococcal Vaccination: 12/17/13 Review of Systems - Review of Systems Constitutional: denies: Fever EENT: denies: Eye discharge, Nose discharge Cardiovascular: denies: Chest pain, Palpitations Respiratory: denies: Short of breath Gastrointestinal: denies: Abdomen distended, Vomiting Genitourinary: denies: Dysuria Musculoskeletal: denies: Leg swelling Skin: Other - no hives. denies: Rash Neurological/Psychological: Other - no slurred speech -: Yes All other systems reviewed and negative Physical Exam - Vital signs Vitals: Resp 18 09/05/16 11:26 Notes: Reviewed vital signs and nursing note as charted by RN. CONSTITUTIONAL: Alert and oriented and responds appropriately to questions. HEAD: Normocephalic; atraumatic EYES: PERRL ENT: Normal nose; no rhinorrhea; moist mucous membranes; pharynx without lesions noted NECK: Supple without meningismus; non-tender; no carotid bruits; no cervical lymphadenopathy, no masses CARD: Regular rate and rhythm; no murmurs, no clicks, no rubs, no gallops; symmetric distal pulses RESP: Normal chest excursion without splinting or tachypnea; breath sounds clear and equal bilaterally; no wheezes, no rhonchi, no rales ABD/GI: Normal bowel sounds; non-distended; soft, non-tender BACK: The back appears normal and is non-tender to palpation, there is no CVA tenderness EXT: Normal ROM in all joints; non-tender to palpation; patient has bilateral lower extremity legs wrapped given her chronic bilateral lymphedema SKIN: Normal color for age and race; warm; dry; good turgor; capillary refill < 2 seconds; no acute lesions noted NEURO: CN 2-12 intact. Moves all extremities equally; Motor and sensory function intact PSYCH: The patient's mood and manner are appropriate. Grooming and personal hygiene are appropriate. Course - Re-evaluation Re-evalutation: 09/05/16 12:05 Given the above history, physical, patient's chronic conditions, the power of sales and service engineer at bedside, we will order basic labs, EKG, and urine analysis. The POA has declined a CT of the head at this time. I believe this is reasonable 09/05/16 12:07 EKG heart rate 64, normal sinus rhythm, normal axis, no obvious ST elevation or depression, inverted T-wave in lead III, PACs present. Old EKG shows no appreciable change 09/05/16 13:13 Labs show a normal white count, normal kidney function, no obvious urinary tract infection. We unwrapped the patient's legs showing some chronic lymphedema appearance with no obvious infections present. 09/05/16 14:05 CT scan of the head as recorded. Patient still has no focal neurological deficits. I did call the facility and speak again to the POA as there was a report of a possible episode of seizure-like activity possibly some "slurred speech". Given the labs and CT scan report, I have offered to admit the patient for further evaluation and possibly MRI imaging and medication adjustment if needed. POA states that she does not believe that this is necessary and is comfortable me discharging the patient back to the facility. I believe given the patient's medical history, that this is a reasonable decision. - Vital Signs Vital signs: Temp Pulse Resp BP Pulse Ox 97.3 F 51 L 18 128/15 H 100 09/05/16 11:30 09/05/16 11:30 09/05/16 13:54 09/05/16 13:54 09/05/16 13:54 - Laboratory Result Diagrams: 09/05/16 12:20 09/05/16 12:20 Laboratory results interpreted by me: 09/05/16 09/05/16 12:20 12:20 Hgb 11.6 L MCH 25.7 L MCHC 31.0 L RDW 17.2 H Carbon Dioxide 31 H BUN 28 H Est GFR (Non-Af Amer) 53 L Discharge - Discharge Clinical Impression: Fatigue Qualifiers: Fatigue type: due to excessive exertion Encounter type: initial encounter Qualified Code(s): T73.3XXA - Exhaustion due to excessive exertion, initial encounter Altered mental status, unspecified Qualifiers: Altered mental status type: unspecified Qualified Code(s): R41.82 - Altered mental status, unspecified Condition: Fair Disposition: HOME, SELF-CARE Additional Instructions: Come back immediately with any repeat episodes of fatigue, weakness or numbness , headache or vomiting, fevers, seizure-like activity, or any other acute problems. Please make sure that the patient follows up with the care facility primary doctor as we have discussed.
[2016-09-05 12:36] LABS: ABSOLUTE EOSINOPHILS # (AUTO) 0.2 10^3/uL (0.0-0.6); ABSOLUTE LYMPHOCYTES (AUTO) 1.6 10^3/uL (0.5-4.7); ABSOLUTE MONOCYTES (AUTO) 0.8 10^3/uL (0.1-1.4); ABSOLUTE NEUT (AUTO) 4.4 10^3/uL (1.7-8.2); BASOPHILS % (AUTO) 0.6 % (0-2); EOSINOPHILS % (AUTO) 3.4 % (0-6); HEMATOCRIT 37.5 % (36.0-47.0); HEMOGLOBIN 11.6 g/dL (12.0-15.5); HGB HCT DIFFERENCE -2.7; LYMPHOCYTES % (AUTO) 22.8 % (13-45); MEAN CORPUSCULAR HEMOGLOBIN 25.7 pg (27.0-33.4); MEAN CORPUSCULAR VOLUME 83 fl (80-97); MONOCYTES % (AUTO) 11.4 % (3-13); RED BLOOD COUNT 4.52 10^6/uL (3.72-5.28); RED CELL DISTRIBUTION WIDTH 17.2 % (11.5-14.0); SEGMENTED NEUTROPHILS % (AUTO) 61.8 % (42-78); WHITE BLOOD COUNT 7.2 10^3/uL (4.0-10.5)
--- NOTE | 2016-09-05 12:41 | EKG REPORT ---
SEVERITY:- BORDERLINE ECG - SINUS RHYTHM ATRIAL PREMATURE COMPLEX BORDERLINE PROLONGED QT INTERVAL : Confirmed by: Maya Dyson MD 05-Sep-2016 12:40:51
[2016-09-05 12:54] LABS: ANION GAP 11 (5-19); BLOOD UREA NITROGEN 28 mg/dL (7-20); CALCIUM 8.6 mg/dL (8.4-10.2); CARBON DIOXIDE 31 mmol/L (22-30); CHLORIDE 100 mmol/L (98-107); CREATININE RESULT 1.03 mg/dL (0.52-1.25); GLUCOSE 90 mg/dL (75-110); POTASSIUM 3.9 mmol/L (3.6-5.0); SODIUM 141.6 mmol/L (137-145)
--- NOTE | 2016-09-05 13:53 | RADIOLOGY REPORT (SQ) ---
EXAM DESCRIPTION: CT HEAD WITHOUT COMPLETED DATE/TIME: 09/05/2016 1:40 pm REASON FOR STUDY: 2, recent fall; possible seizure COMPARISON: 04/15/2015, 03/23/2014 CT Brain TECHNIQUE: Axial images acquired through the brain without intravenous contrast. Images reviewed wi th bone, brain and subdural windows. Images stored on PACS. All CT scanners at this facility use dose modulation, iterative reconstruction, and/or weight based d osing when appropriate to reduce radiation dose to as low as reasonably achievable (ALARA). [facility]: Dose Right [facility]: CareDose [facility]: Dose Right [facility]: Teradose 4D [facility]: StarChase RADIATION DOSE: Up-to-date CT equipment and radiation dose reduction techniques were employed. CTDIv ol: 64.6 mGy. DLP: 1163 mGy-cm. mGy. LIMITATIONS: Mild motion artifact FINDINGS: VENTRICLES: Normal size and contour. CEREBRUM: No masses. No hemorrhage. No midline shift. Normal quan/white matter differentiation. N o evidence for acute infarction. CEREBELLUM: No masses. No hemorrhage. No alteration of density. No evidence for acute infarction. EXTRAAXIAL SPACES: No fluid collections. No masses. ORBITS AND GLOBE: No intra- or extraconal masses. Normal contour of globe without masses. CALVARIUM: No fracture. PARANASAL SINUSES: No fluid or mucosal thickening. SOFT TISSUES: No mass or hematoma. OTHER: No other significant finding. IMPRESSION: NORMAL BRAIN CT WITHOUT CONTRAST. TECHNICAL DOCUMENTATION: JOB ID: [id number] Quality ID # [id number]: Final reports with documentation of one or more dose reduction techniques (e.g., Au tomated exposure control, adjustment of the mA and/or kV according to patient size, use of iterative reconstruction technique) 2010 [employer]- All Rights Reserved
[2016-09-05 15:07] VITALS: BP 102/51
== END 2016-09-05 15:07 | disposition home or self-care (01) ==
LOC: ER 11:11
DX: T73.3XXA Exhaustion due to excessive exertion, initial encounter (principal); X58.XXXA Exposure to other specified factors, initial encounter; R41.82 Altered mental status, unspecified; I89.0 Lymphedema, not elsewhere classified; I10 Essential (primary) hypertension; Z66 Do not resuscitate; Z91.81 History of falling; Z88.2 Allergy status to sulfonamides; Z91.048 Other nonmedicinal substance allergy status
CPT/HCPCS: 36415; 70450; 80048; 81001; 84484; 85025; 93005; 93010; 99285

== ENCOUNTER 2016-09-15 09:01 | Emergency (ER) | payer MEDICARE, MEDICAID ==
[2016-09-15] MEDS ORDERED: NALOXONE HCL INJ/PF 0.4 MG/1 ML SDV IV ONE (10:04)
[2016-09-15] MEDS ORDERED: ONDANSETRON HCL INJ/PF 4 MG/2 ML SDV ONE (10:16)
[2016-09-15] MEDS ORDERED: ONDANSETRON HCL INJ/PF 4 MG/2 ML SDV IV ONE (10:16)
--- NOTE | 2016-09-15 10:16 | ER Document Report ---
ED General - General Chief Complaint: General Weakness Stated Complaint: BODY ACHES Time Seen by Provider: 09/15/16 09:05 Mode of Arrival: Medic Information source: Patient, Relative, Emergency Med Personnel Notes: 56-year-old female who is on MS Contin for generalized pain presents from care facility with concerns that every 4 hours she becomes very weak and tired and minimally responsive. Patient was seen for similar concerns recently denies any fevers or chills nausea vomiting or diarrhea TRAVEL OUTSIDE OF THE [place] IN LAST 30 DAYS: No - HPI Onset: Other Onset/Duration: Intermittent Quality of pain: No pain Severity: Mild Pain Level: Denies Associated symptoms: Weakness Exacerbated by: Denies Relieved by: Denies Similar symptoms previously: Yes Recently seen / treated by doctor: Yes - Related Data Allergies/Adverse Reactions: Sulfa (Sulfonamide Antibiotics) Allergy (Verified 09/15/16 09:34) red food dye Allergy (Uncoded 09/15/16 09:34) Past Medical History - Social History Smoking Status: Never Smoker Cigarette use (# per day): No Chew tobacco use (# tins/day): No Smoking Education Provided: No Frequency of alcohol use: None Drug Abuse: None Family History: Hypertension, Malignancy - Unknown type - Past Medical History Cardiac Medical History: Reports: Hx Congestive Heart Failure, Hx Hypercholesterolemia, Hx Hypertension Pulmonary Medical History: Reports: Hx Pneumonia Neurological Medical History: Reports: Hx Seizures - NO SEIZURE IN OVER 20 YEARS Renal/ Medical History: Reports: Hx End Stage Renal Disease - kidney disease- stage 3, Hx Renal Insufficiency. Denies: Hx Peritoneal Dialysis Malignancy Medical History: Reports: Hx Colorectal Cancer, Hx Lymphoma - Non- Hodgkin's lymphoma. GI Medical History: Reports: Hx Gastroesophageal Reflux Disease Musculoskeltal Medical History: Reports Hx Arthritis Psychiatric Medical History: Reports: Hx Bipolar Disorder, Hx Dementia, Hx Depression, Hx Schizophrenia - Paranoid schizophrenia Past Surgical History: Reports: Hx Abdominal Surgery - hernia repair, Hx Appendectomy, Hx Herniorrhaphy, Hx Hysterectomy, Hx Tonsillectomy, Other - Port- A-Cath placement - Immunizations Hx Diphtheria, Pertussis, Tetanus Vaccination: Yes Hx Pneumococcal Vaccination: 12/17/13 Review of Systems - Review of Systems Notes: REVIEW OF SYSTEMS: CONSTITUTIONAL : Denies fever, chills, or sweats. Denies recent illness. EENT: Denies eye, ear, throat, or mouth pain or symptoms. Denies nasal or sinus congestion or discharge. Denies throat, tongue, or mouth swelling or difficulty swallowing. CARDIOVASCULAR: Denies chest pain. Denies palpitations or racing or irregular heart beat. Denies ankle edema. RESPIRATORY: Denies cough, cold, or chest congestion. Denies shortness of breath, difficulty breathing, or wheezing. GASTROINTESTINAL: Denies abdominal pain or distention. Denies nausea, vomiting , or diarrhea. Denies blood in vomitus, stools, or per rectum. Denies black, tarry stools. Denies constipation. GENITOURINARY: Denies difficulty urinating, painful urination, burning, frequency, blood in urine, or discharge. FEMALE GENITOURINARY: Denies vaginal bleeding, heavy or abnormal periods, irregular periods. Denies vaginal discharge or odor. MUSCULOSKELETAL: Denies back or neck pain or stiffness. Denies joint pain or swelling. SKIN: Denies rash, lesions or sores. HEMATOLOGIC : Denies easy bruising or bleeding. LYMPHATIC: Denies swollen, enlarged glands. NEUROLOGICAL: Admits to weakness PSYCHIATRIC: Denies anxiety or stress. Denies depression, suicidal ideation, or homicidal ideation. ALL OTHER SYSTEMS REVIEWED AND NEGATIVE. PHYSICAL EXAMINATION: GENERAL: Well-appearing, well-nourished and in no acute distress. HEAD: Atraumatic, normocephalic. EYES: pin Point pupils ENT: Nares patent, oropharynx clear without exudates. Moist mucous membranes. NECK: Normal range of motion, supple without lymphadenopathy LUNGS: Breath sounds clear to auscultation bilaterally and equal. No wheezes rales or rhonchi. HEART: Regular rate and rhythm without murmurs ABDOMEN: Soft, nontender, nondistended abdomen. No guarding, no rebound. No masses appreciated. Female : deferred Musculoskeletal: Normal range of motion, no pitting or edema. No cyanosis. NEUROLOGICAL: Cranial nerves grossly intact. Normal speech, normal gait. Normal sensory, motor exams PSYCH: Normal mood, normal affect. SKIN: Warm, Dry, normal turgor, no rashes or lesions noted. Dictation was performed using [employer] voice recognition software Physical Exam - Vital signs Vitals: Temp Pulse Resp BP Pulse Ox 97.7 F 56 L 20 118/63 98 09/15/16 09:05 09/15/16 09:05 09/15/16 09:05 09/15/16 09:05 09/15/16 09:05 Course - Re-evaluation Re-evalutation: 09/15/16 10:14 Patient's pupils were pinpoint, it is noted she receives MS Contin every 8 hours , pt given 0.4 narcan immediately awoke 09/15/16 10:29 09/15/16 11:46 Labwork notes no significant abnormality patient otherwise looks well family instructed to follow-up with primary care physician regarding the level of narcotics she is on After performing a Medical Screening Examination, I estimate there is LOW risk for INTRACRANIAL HEMORRHAGE, ISCHEMIC CVA, MALIGNANT DYSRHYTHMIA, ACUTE CORONARY SYNDROME, MENINGITIS, PULMONARY EMBOLISM, or SEPSIS thus I consider the discharge disposition reasonable. I have reevaluated this patient multiple times and no significant life threatening changes are noted. The patient and I have discussed the diagnosis and risks, and we agree with discharging home with close follow-up with the understanding that symptoms and presentations can change. We also discussed returning to the Emergency Department immediately if new or worsening symptoms occur. We have discussed the symptoms which are most concerning (e.g., changing or worsening pain, weakness, vomiting, fever) that necessitate immediate return. - Vital Signs Vital signs: Temp Pulse Resp BP Pulse Ox 97.4 F 57 L 18 109/91 H 96 09/15/16 09:22 09/15/16 09:22 09/15/16 11:01 09/15/16 11:01 09/15/16 11:01 - Laboratory Result Diagrams: 09/15/16 09:26 09/15/16 09:26 Laboratory results interpreted by me: 09/15/16 09/15/16 09/15/16 09:26 09:26 11:08 Hgb 10.5 L Hct 34.2 L MCH 25.3 L MCHC 30.6 L RDW 16.9 H Carbon Dioxide 32 H BUN 32 H Est GFR (Non-Af Amer) 57 L Total Protein 5.5 L Albumin 3.1 L Urine Ascorbic Acid 20 H Discharge - Discharge Clinical Impression: Acute encephalopathy Narcotic overdose Qualifiers: Encounter type: initial encounter Injury intent: accidental or unintentional Qualified Code(s): T40.601A - Poisoning by unspecified narcotics, accidental ( unintentional), initial encounter Condition: Stable Disposition: HOME, SELF-CARE Referrals: PATRICIA HARDEN MD [Primary Care Provider] - Follow up tomorrow
[2016-09-15 10:24] LABS: ABSOLUTE EOSINOPHILS # (AUTO) 0.2 10^3/uL (0.0-0.6); ABSOLUTE LYMPHOCYTES (AUTO) 1.4 10^3/uL (0.5-4.7); ABSOLUTE MONOCYTES (AUTO) 0.6 10^3/uL (0.1-1.4); ABSOLUTE NEUT (AUTO) 3.1 10^3/uL (1.7-8.2); BASOPHILS % (AUTO) 0.5 % (0-2); EOSINOPHILS % (AUTO) 4.1 % (0-6); HEMATOCRIT 34.2 % (36.0-47.0); HEMOGLOBIN 10.5 g/dL (12.0-15.5); HGB HCT DIFFERENCE -2.7; LYMPHOCYTES % (AUTO) 26.6 % (13-45); MEAN CORPUSCULAR HEMOGLOBIN 25.3 pg (27.0-33.4); MEAN CORPUSCULAR HGB CONC 30.6 g/dL (32.0-36.0); MEAN CORPUSCULAR VOLUME 83 fl (80-97); RED BLOOD COUNT 4.14 10^6/uL (3.72-5.28); RED CELL DISTRIBUTION WIDTH 16.9 % (11.5-14.0); SEGMENTED NEUTROPHILS % (AUTO) 56.8 % (42-78); WHITE BLOOD COUNT 5.4 10^3/uL (4.0-10.5)
[2016-09-15 10:30] LABS: ALANINE AMINOTRANSFERASE 26 U/L (9-52); ALBUMIN 3.1 g/dL (3.5-5.0); ALKALINE PHOSPHATASE 98 U/L (38-126); ANION GAP 8 (5-19); ASPARTATE AMINO TRANSFERASE 15 U/L (14-36); BILIRUBIN,DIRECT 0.3 mg/dL (0.0-0.4); BILIRUBIN,TOTAL 0.4 mg/dL (0.2-1.3); BLOOD UREA NITROGEN 32 mg/dL (7-20); CALCIUM 8.5 mg/dL (8.4-10.2); CARBON DIOXIDE 32 mmol/L (22-30); CHLORIDE 103 mmol/L (98-107); CREATINE KINASE 49 U/L (30-135); CREATININE RESULT 0.97 mg/dL (0.52-1.25); GLUCOSE 107 mg/dL (75-110); POTASSIUM 3.9 mmol/L (3.6-5.0); SODIUM 142.5 mmol/L (137-145); TOTAL PROTEIN 5.5 g/dL (6.3-8.2)
[2016-09-15 10:41] LABS: CREATINE KINASE MB 0.88 ng/mL (<4.55)
[2016-09-15 10:43] LABS: TROPONIN I < 0.012 ng/mL
[2016-09-15 11:41] LABS: APPEARANCE,URINE CLEAR; BILIRUBIN,URINE NEGATIVE (NEGATIVE); GLUCOSE, URINE NEGATIVE (NEGATIVE); KETONES,URINE NEGATIVE (NEGATIVE); LEUKOCYTE ESTERASE,URINE NEGATIVE (NEGATIVE); NITRITE,URINE NEGATIVE (NEGATIVE); PROTEIN,URINE NEGATIVE (NEGATIVE); UROBILINOGEN,URINE NEGATIVE mg/dL (<2.0)
[2016-09-15 12:15] VITALS: BP 106/43
[2016-09-15] MEDS ORDERED: HEPARIN SOD (PORCINE) 1,000 UNIT/ML 10 ML VIAL IV ONE (12:17)
== END 2016-09-15 12:39 | disposition home or self-care (01) ==
LOC: ER 09:01
DX: T40.2X1A Poisoning by other opioids, accidental (unintentional), initial encounter (principal); Y92.199 Unspecified place in other specified residential institution as the place of occurrence of the external cause; G93.40 Encephalopathy, unspecified; R52 Pain, unspecified; R53.1 Weakness; R53.83 Other fatigue; I10 Essential (primary) hypertension; Z88.2 Allergy status to sulfonamides; Z79.891 Long term (current) use of opiate analgesic; Z85.72 Personal history of non-Hodgkin lymphomas; Z85.048 Personal history of other malignant neoplasm of rectum, rectosigmoid junction, and anus; Z91.048 Other nonmedicinal substance allergy status
CPT/HCPCS: 36591; 99284; 51701; 96374; 36415; 82553; 82550; 85025; 80053; 81001; 84484; J2310; J2405

== ENCOUNTER 2016-10-13 13:42 | Emergency (ER) | payer MEDICARE, MEDICAID ==
--- NOTE | 2016-10-13 14:18 | ER Document Report ---
ED General - General Chief Complaint: Altered Mental Status Stated Complaint: ALTERED MENTAL STATUS Time Seen by Provider: 10/13/16 14:06 Mode of Arrival: Stretcher Information source: Outside Facility Records TRAVEL OUTSIDE OF THE [place] IN LAST 30 DAYS: No - HPI Patient complains to provider of: Decreased responsiveness Onset: This afternoon Onset/Duration: Gradual Quality of pain: No pain Associated symptoms: None Exacerbated by: Denies Relieved by: Denies Similar symptoms previously: Yes Notes: Patient is a 66-year-old female who was sent to to the emergency room from retirement for decreased responsiveness, on arrival patient is somnolent but will open her eyes and answer questions, follows simple commands, her pupils are pinpoint, she is maintaining her airway with stable vital signs, she denies any pain anywhere, patient has a history of previous similar presentations in the past, there is no fever, no cough, cold or congestion, no nausea, vomiting or diarrhea, no dysuria or hematuria - Related Data Allergies/Adverse Reactions: Sulfa (Sulfonamide Antibiotics) Allergy (Verified 10/13/16 14:12) red food dye Allergy (Uncoded 10/13/16 14:12) Past Medical History - General Information source: Outside Facility Records - Social History Smoking Status: Unknown if Ever Smoked Family History: Hypertension, Malignancy - Unknown type - Past Medical History Cardiac Medical History: Reports: Hx Congestive Heart Failure, Hx Hypercholesterolemia, Hx Hypertension Pulmonary Medical History: Reports: Hx Pneumonia Neurological Medical History: Reports: Hx Seizures - NO SEIZURE IN OVER 20 YEARS Renal/ Medical History: Reports: Hx End Stage Renal Disease - kidney disease- stage 3, Hx Renal Insufficiency. Denies: Hx Peritoneal Dialysis Malignancy Medical History: Reports: Hx Colorectal Cancer, Hx Lymphoma - Non- Hodgkin's lymphoma. GI Medical History: Reports: Hx Gastroesophageal Reflux Disease Musculoskeltal Medical History: Reports Hx Arthritis Psychiatric Medical History: Reports: Hx Bipolar Disorder, Hx Dementia, Hx Depression, Hx Schizophrenia - Paranoid schizophrenia Past Surgical History: Reports: Hx Abdominal Surgery - hernia repair, Hx Appendectomy, Hx Herniorrhaphy, Hx Hysterectomy, Hx Tonsillectomy, Other - Port- A-Cath placement - Immunizations Hx Diphtheria, Pertussis, Tetanus Vaccination: Yes Hx Pneumococcal Vaccination: 12/17/13 Review of Systems - Review of Systems Constitutional: No symptoms reported EENT: No symptoms reported Cardiovascular: No symptoms reported Respiratory: No symptoms reported Gastrointestinal: No symptoms reported Genitourinary: No symptoms reported Female Genitourinary: No symptoms reported Musculoskeletal: No symptoms reported Skin: No symptoms reported Hematologic/Lymphatic: No symptoms reported Neurological/Psychological: See HPI -: Yes All other systems reviewed and negative Physical Exam - Vital signs Vitals: Resp 12 10/13/16 14:23 Interpretation: Normal - General General appearance: Other - Somnolent but responsive - HEENT Head: Normocephalic, Atraumatic Eyes: Normal Pupils: PERRL - Respiratory Respiratory status: No respiratory distress Chest status: Nontender Breath sounds: Normal Chest palpation: Normal - Cardiovascular Rhythm: Regular Heart sounds: Normal auscultation Murmur: No - Abdominal Inspection: Normal, Obese Distension: No distension Bowel sounds: Normal Tenderness: Nontender Organomegaly: No organomegaly - Back Back: Normal, Nontender - Extremities General upper extremity: Normal inspection, Nontender, Normal color, Normal ROM , Normal temperature General lower extremity: Normal color, Other - Bilateral lower extremities bandaged to the knees. No: Stacie's sign - Neurological Neuro grossly intact: Yes Cognition: Normal Orientation: AAOx4 [place] Coma Scale Eye Opening: To Voice Zack[place] Coma Scale Verbal: Oriented [place] Coma Scale Motor: Obeys Commands [place] Coma Scale Total: 14 Motor strength normal: LUE, RUE, LLE, RLE Sensory: Normal - Psychological Associated symptoms: Normal affect, Normal mood - Skin Skin Temperature: Warm Skin Moisture: Dry Skin Color: Normal Course - Re-evaluation Re-evalutation: 10/13/16 18:14 Patient much more awake and alert, lab and vital signs have been stable since patient came to the emergency room, she did have slight increase of her CO2 on venous blood gas, however that improved on repeat testing when she was much more awake, patient did have pinpoint pupils on arrival, likely her symptoms are consistent with narcotic overuse, she was discharged back to the retirement with instructions for follow-up and advised to return if any additional concerns - Vital Signs Vital signs: Temp Pulse Resp BP Pulse Ox 15 108/52 L 100 10/13/16 15:21 10/13/16 15:21 10/13/16 15:21 - Laboratory Result Diagrams: 10/13/16 14:59 10/13/16 14:59 Laboratory results interpreted by me: 10/13/16 10/13/1610/13/17 14:59 14:59 14:59 Hgb 10.8 L Hct 33.8 L MCH 25.7 L RDW 17.1 H VBG pCO2 64.5 H VBG HCO3 35.6 H Carbon Dioxide 34 H BUN 35 H Est GFR (Non-Af Amer) 50 L Total Protein 5.5 L Albumin 3.3 L 10/13/16 17:42 Hgb Hct MCH RDW VBG pCO2 VBG HCO3 33.0 H Carbon Dioxide BUN Est GFR (Non-Af Amer) Total Protein Albumin - Diagnostic Test Radiology reviewed: Image reviewed, Reports reviewed - EKG Interpretation by Me EKG shows normal: Sinus rhythm Rate: Bradycardia When compared to previous EKG there are: No significant change Discharge - Discharge Clinical Impression: Somnolence, Generalized weakness Condition: Stable Disposition: HOME, SELF-CARE Instructions: Weakness ([facility]) Additional Instructions: Follow up with your primary care provider in one to 2 days. Return to the emergency room immediately if symptoms worsen or any additional concerns. Referrals: BRITTNEY STANTON MD [Primary Care Provider] - Follow up as needed
[2016-10-13 14:48] LABS: APPEARANCE,URINE CLEAR; BILIRUBIN,URINE NEGATIVE (NEGATIVE); GLUCOSE, URINE NEGATIVE (NEGATIVE); KETONES,URINE NEGATIVE (NEGATIVE); LEUKOCYTE ESTERASE,URINE NEGATIVE (NEGATIVE); NITRITE,URINE NEGATIVE (NEGATIVE); PROTEIN,URINE NEGATIVE (NEGATIVE); URINE SPECIFIC GRAVITY 1.005; UROBILINOGEN,URINE NEGATIVE mg/dL (<2.0)
[2016-10-13 15:19] LABS: VENOUS BLOOD BASE EXCESS 8.3 mmol/L; VENOUS BLOOD HCO3 35.6 mmol/L (20-32); VENOUS BLOOD PCO2 64.5 mmHg (35-63); VENOUS BLOOD PH 7.36 (7.30-7.42)
[2016-10-13 15:25] LABS: ABSOLUTE BASOPHILS # (AUTO) 0.1 10^3/uL (0.0-0.2); ABSOLUTE EOSINOPHILS # (AUTO) 0.3 10^3/uL (0.0-0.6); ABSOLUTE LYMPHOCYTES (AUTO) 2.2 10^3/uL (0.5-4.7); ABSOLUTE MONOCYTES (AUTO) 0.7 10^3/uL (0.1-1.4); ABSOLUTE NEUT (AUTO) 4.9 10^3/uL (1.7-8.2); BASOPHILS % (AUTO) 0.6 % (0-2); EOSINOPHILS % (AUTO) 3.2 % (0-6); HEMATOCRIT 33.8 % (36.0-47.0); HEMOGLOBIN 10.8 g/dL (12.0-15.5); HGB HCT DIFFERENCE -1.4; LYMPHOCYTES % (AUTO) 27.3 % (13-45); MEAN CORPUSCULAR HEMOGLOBIN 25.7 pg (27.0-33.4); MEAN CORPUSCULAR VOLUME 80 fl (80-97); RED BLOOD COUNT 4.21 10^6/uL (3.72-5.28); RED CELL DISTRIBUTION WIDTH 17.1 % (11.5-14.0); SEGMENTED NEUTROPHILS % (AUTO) 59.9 % (42-78); WHITE BLOOD COUNT 8.2 10^3/uL (4.0-10.5)
[2016-10-13 15:37] LABS: ALANINE AMINOTRANSFERASE 24 U/L (9-52); ALBUMIN 3.3 g/dL (3.5-5.0); ALKALINE PHOSPHATASE 96 U/L (38-126); ANION GAP 6 (5-19); ASPARTATE AMINO TRANSFERASE 16 U/L (14-36); BILIRUBIN,DIRECT 0.3 mg/dL (0.0-0.4); BILIRUBIN,TOTAL 0.4 mg/dL (0.2-1.3); BLOOD UREA NITROGEN 35 mg/dL (7-20); CALCIUM 8.5 mg/dL (8.4-10.2); CARBON DIOXIDE 34 mmol/L (22-30); CHLORIDE 101 mmol/L (98-107); CREATININE RESULT 1.08 mg/dL (0.52-1.25); GLUCOSE 97 mg/dL (75-110); POTASSIUM 4.3 mmol/L (3.6-5.0); SODIUM 141.4 mmol/L (137-145); TOTAL PROTEIN 5.5 g/dL (6.3-8.2)
--- NOTE | 2016-10-13 15:52 | RADIOLOGY REPORT (SQ) ---
EXAM DESCRIPTION: CHEST SINGLE VIEW COMPLETED DATE/TIME: 10/13/2016 3:41 pm REASON FOR STUDY: ams COMPARISON: 04/14/2016 EXAM PARAMETERS: NUMBER OF VIEWS: One view. TECHNIQUE: Single frontal radiographic view of the chest acquired. RADIATION DOSE: NA LIMITATIONS: None. FINDINGS: LUNGS AND PLEURA: No opacities, masses or pneumothorax. No pleural effusion. MEDIASTINUM AND HILAR STRUCTURES: No masses. Contour normal. HEART AND VASCULAR STRUCTURES: Cardiomegaly without CHF. BONES: No acute findings. HARDWARE: An injection port is present on the right. OTHER: No other significant finding. IMPRESSION: Cardiomegaly with no CHF and no acute pulmonary disease. TECHNICAL DOCUMENTATION: JOB ID: [id number]
[2016-10-13 18:05] LABS: VENOUS BLOOD BASE EXCESS 6.3 mmol/L; VENOUS BLOOD PCO2 57.4 mmHg (35-63); VENOUS BLOOD PH 7.38 (7.30-7.42)
--- NOTE | 2016-10-13 18:58 | EKG REPORT ---
SEVERITY:- BORDERLINE ECG - ECTOPIC ATRIAL RHYTHM : Confirmed by: Maya Dyson MD 13-Oct-2016 18:57:32
[2016-10-14 03:08] VITALS: BP 142/74
== END 2016-10-13 20:00 | disposition home or self-care (01) ==
LOC: ER 13:42
DX: R40.0 Somnolence (principal); R00.1 Bradycardia, unspecified; R53.1 Weakness; I10 Essential (primary) hypertension; Z88.2 Allergy status to sulfonamides; Z91.048 Other nonmedicinal substance allergy status; Z85.72 Personal history of non-Hodgkin lymphomas; Z85.048 Personal history of other malignant neoplasm of rectum, rectosigmoid junction, and anus
CPT/HCPCS: 36415; 51702; 71010; 80053; 81001; 82803; 83605; 85025; 85610; 87086; 93005; 93010; 99285